=== PATIENT | male | born 1975 | race African-American/Black ===

== ENCOUNTER 2020-07-26 13:11 | Inpatient (IN) ==
[2020-07-26] MEDS ORDERED: ONDANSETRON 4 MG/2 ML VIAL IV STA (14:48)
[2020-07-26] MEDS ORDERED: METOCLOPRAMIDE 10 MG/2 ML VIAL IV STA (14:48)
[2020-07-26] MEDS ORDERED: PANTOPRAZOLE 40 MG VIAL IV STA (14:48)
[2020-07-26] MEDS ORDERED: SODIUM CHLORIDE 0.9% 1,000 ML IV STA (14:48)
[2020-07-26 15:21] LABS: Bacteria,Urine Occasional /HPF (Few); Bilirubin,Urine Moderate mg/dL (Negative); Blood, Urine Negative (Negative); Glucose,Urine (UA) Negative (Negative); Hyaline Casts,Urine 15 /LPF (0-3); Ketones,Urine Negative (Negative); Mucus,Urine Few /LPF (Occasional); Nitrite,Urine Negative (Negative); Protein,Urine 30 MG/DL; RBC,Urine 3 /HPF (0-4); Squamous Epithelial Cell,Urine Occasional /HPF (0-10); Urine Appearance CLEAR (Clear); Urine Color Amber (Yellow); Urine Specific Gravity 1.023 (1.001-1.035); WBC,Urine 5 /HPF (0-6)
[2020-07-26 15:46] LABS: Bilirubin,Total 5.4 MG/DL (0.2-1.0); Calcium 7.8 MG/DL (8.5-10.1); Osmolality,Calculated 269.1 MOS/KG (273-304); Total Protein 5.9 G/DL (6.4-8.3)
[2020-07-26 15:49] LABS: Basophils # 0.1 10*3/uL (0.0-0.2); Basophils % 0.6 % (0.0-0.8); Eosinophils % 0.2 % (0.00-10.9); Hematocrit 30.3 VOL% (42.0-52.0); Hemoglobin 9.8 GM/DL (14.0-18.0); Immature Granulocytes % 3.1 %; Immature Granulocytes Absolute 0.37 #; Lymphocytes # 1.6 10*3/uL (1.4-4.0); Lymphocytes % 13.8 % (21.2-54.2); Mean Corpuscular HGB Conc 32.3 GM/DL (32-36); Mean Corpuscular Volume 102.4 FL (87-102); Mean Platelet Volume 13.5 FL (9.6-12.0); Monocytes % 8.4 % (1.7-12.7); Neutrophils % 73.9 % (38.7-73.9); Platelet Count 113 T/CUMM (130-400); Red Blood Count 2.96 MC/CUMM (3.8-5.5); Red Cell Distribution Width 15.5 % (9.3-17.3); White Blood Count 11.8 T/CUMM (4-12)
[2020-07-26 16:46] LABS: Folate 8.4 NG/ML (5.4-24.0)
[2020-07-26] MEDS ORDERED: DEXTROSE 50% 25 GM/50 ML VIAL IV PRN (17:39)
[2020-07-26] MEDS ORDERED: ACETAMINOPHEN 325 MG TABLET PO PRN (17:39)
[2020-07-26] MEDS ORDERED: GLUCAGON 1 MG VIAL IM PRN (17:39)
[2020-07-26] MEDS: SODIUM CHLORIDE 0.9% 1,000 ML IV SCH (18:15)
[2020-07-26 22:41] LABS: Hematocrit 26.8 VOL% (42.0-52.0); Hemoglobin 8.8 GM/DL (14.0-18.0)
[2020-07-27 04:35] LABS: Basophils # 0.1 10*3/uL (0.0-0.2); Basophils % 0.6 % (0.0-0.8); Eosinophils # 0.1 10*3/uL (0.0-0.87); Eosinophils % 0.5 % (0.00-10.9); Hematocrit 25.6 VOL% (42.0-52.0); Hemoglobin 8.4 GM/DL (14.0-18.0); Immature Granulocytes % 3.2 %; Immature Granulocytes Absolute 0.32 #; Lymphocytes # 1.6 10*3/uL (1.4-4.0); Lymphocytes % 16.3 % (21.2-54.2); Mean Corpuscular HGB Conc 32.8 GM/DL (32-36); Mean Corpuscular Volume 102.8 FL (87-102); Monocytes % 9.6 % (1.7-12.7); NRBC # 0.09 10*3/uL; Neutrophils % 69.8 % (38.7-73.9); Platelet Count 101 T/CUMM (130-400); Red Blood Count 2.49 MC/CUMM (3.8-5.5); Red Cell Distribution Width 15.7 % (9.3-17.3); White Blood Count 10.1 T/CUMM (4-12)
[2020-07-27 04:57] LABS: Hypochromasia 1+
[2020-07-27 04:58] LABS: Anisocytosis 1+; Macrocytosis 1+; Pappenheimer Bodies Few; Polychromasia Slight
[2020-07-27 04:59] LABS: Calcium 7.4 MG/DL (8.5-10.1); Osmolality,Calculated 274.5 MOS/KG (273-304); Platelet Estimate Decreased; Target Cells Slight
[2020-07-27] MEDS ORDERED: NICOTINE 14 MG/24 HR PATCH TRANSDERM SCH (09:00)
[2020-07-27 09:24] LABS: Hematocrit 26.2 VOL% (42.0-52.0); Hemoglobin 8.4 GM/DL (14.0-18.0)
[2020-07-27] MEDS: FOLIC ACID 0.4 MG TABLET PO SCH (09:34)
[2020-07-27] MEDS: ZINC SULFATE 220 MG CAPSULE PO SCH (09:36)
[2020-07-27] MEDS: VITAMIN E 400 UNIT CAPSULE PO SCH (09:36)
[2020-07-27] MEDS: NICOTINE 14 MG/24 HR PATCH TRANSDERM SCH (09:36)
[2020-07-27] MEDS: SODIUM CHLORIDE 0.9% 1,000 ML IV SCH ×2 (09:45→22:19)
[2020-07-27 10:44] LABS: Hepatitis B Core IgM Quant 0.07 Index; Hepatitis B Surface Ag Quant 0.34 Index; Hepatitis B Surface Ag Result Negative (Negative); Hepatitis C Virus Ab Quant 0.05 Index; Hepatitis C Virus Ab Result Negative (Negative)
[2020-07-27 12:35] LABS: INR 1.1; PT Patient Result 12.2 SECS (9.8-11.9)
[2020-07-27] MEDS ORDERED: POTASSIUM CHLORIDE 20 MEQ TABLET PO ONE (14:00)
[2020-07-27] MEDS: PANTOPRAZOLE 40 MG TABLET PO SCH (15:07)
[2020-07-27] MEDS: CALCIUM (CARBONATE) 600 MG TABLET PO SCH (20:48)
[2020-07-28 05:46] LABS: Basophils % 0.3 % (0.0-0.8); Eosinophils % 0.3 % (0.00-10.9); Hematocrit 25.3 VOL% (42.0-52.0); Hemoglobin 8.3 GM/DL (14.0-18.0); Immature Granulocytes % 4.4 %; Immature Granulocytes Absolute 0.52 #; Lymphocytes # 1.4 10*3/uL (1.4-4.0); Lymphocytes % 11.9 % (21.2-54.2); Mean Corpuscular HGB Conc 32.8 GM/DL (32-36); Mean Corpuscular Volume 102.8 FL (87-102); Monocytes % 8.6 % (1.7-12.7); NRBC # 0.08 10*3/uL; Neutrophils % 74.5 % (38.7-73.9); Platelet Count 108 T/CUMM (130-400); Red Blood Count 2.46 MC/CUMM (3.8-5.5); Red Cell Distribution Width 16.3 % (9.3-17.3); White Blood Count 11.8 T/CUMM (4-12)
[2020-07-28 06:08] LABS: Albumin 1.6 G/DL (3.4-5.0); Bilirubin,Total 5.6 MG/DL (0.2-1.0); Calcium 7.5 MG/DL (8.5-10.1); Osmolality,Calculated 277.4 MOS/KG (273-304); Total Protein 4.8 G/DL (6.4-8.3)
[2020-07-28 06:14] LABS: Band Neutrophils 1 % (0-10); Lymphocytes 16 % (20-55); Nucleated Red Blood Cells 2 (0-5); Segmented Neutrophils 80 % (50-85); Total Cells Counted 100
[2020-07-28 06:15] LABS: Hypochromasia 1+; Pappenheimer Bodies Slight; Platelet Estimate Decreased
[2020-07-28 06:16] LABS: Macrocytosis Slight; Polychromasia Slight
[2020-07-28 06:19] LABS: Bilirubin,Direct 4.95 MG/DL (0.0-0.20)
[2020-07-28] MEDS ORDERED: LACTATED RINGERS 1,000 ML IV SCH (08:00)
[2020-07-28] MEDS ORDERED: propofoL 200 MG/20 ML VIAL IV ONE (09:00)
[2020-07-28] MEDS ORDERED: LIDOCAINE 2% 5 ML VIAL ONE (09:00)
[2020-07-28 12:00] VITALS: BP 126/92
[2020-07-28] MEDS: FOLIC ACID 0.4 MG TABLET PO SCH ×2 (14:07→14:22)
[2020-07-28] MEDS: VITAMIN E 400 UNIT CAPSULE PO SCH ×2 (14:07→14:22)
[2020-07-28] MEDS: CALCIUM (CARBONATE) 600 MG TABLET PO SCH ×2 (14:07→14:22)
[2020-07-28] MEDS: NICOTINE 14 MG/24 HR PATCH TRANSDERM SCH ×2 (14:07→14:22)
[2020-07-28] MEDS: ZINC SULFATE 220 MG CAPSULE PO SCH ×2 (14:08→14:22)
[2020-07-28] MEDS: PANTOPRAZOLE 40 MG TABLET PO SCH (14:22)
[2020-07-28] MEDS ORDERED: PANTOPRAZOLE 40 MG TABLET PO SCH (21:00)
== END 2020-07-28 14:20 | disposition left against medical advice (07) | DRG 379 ==
LOC: N.ED 13:11 → N.EDINP 17:39 → N.3E 22:13
PROVIDERS: ADMIT Hospitalist; ATTEND Hospitalist